=== PATIENT | female | born 2000 | race African-American/Black ===

== ENCOUNTER 2022-04-21 09:50 | Emergency (ER) | payer OTHER ==
[~2022-04-21] VITALS: Ht 157.5 cm; Wt 81.0 kg
[2022-04-21 09:56] VITALS: BP 125/87
[2022-04-21 10:54] LABS: Basophils # (auto) 0 10 ^3/uL (0-0.2); Basophils % (auto) 0.3 % (0.0-2.0); Eosinophils # (auto) 0 10 ^3/uL (0-0.8); Hematocrit 43.3 % (36.0-46.0); Hemoglobin 14.3 g/dL (12.2-16.2); Lymphocytes # (auto) 1.7 10 ^3/uL (0.4-5.4); Lymphocytes % (auto) 11.7 % (10.0-50.0); Mean Corpuscular Hemoglobin 31.7 pg (28.0-32.0); Mean Corpuscular Volume 95.9 fL (80.0-100.0); Monocytes # (auto) 1.1 10 ^3/uL (0-1.3); Monocytes % (auto) 7.7 % (0.0-12.0); Neutrophils # (auto) 11.8 10 ^3/uL (1.6-8.6); Neutrophils % (auto) 80.3 % (37.0-80.0); Red Blood Cells 4.52 10^6/uL (4.0-5.20); White Blood Cell 14.8 10^3/uL (4.4-10.8)
[2022-04-21 11:14] LABS: BUN/Creatinine Ratio 9.3; Calcium 9.5 mg/dL (8.5-10.1); Potassium 4.3 mmol/L (3.5-5.1)
[2022-04-21 12:16] LABS: Alcohol, Urine < 3.0 mg/dL (0-10); Amphetamine Screen, Urine NEGATIVE (NEGATIVE); Barbiturate Scree,Urine NEGATIVE (NEGATIVE); Benzodiazephine Screen, Urine NEGATIVE (NEGATIVE); Cannabinoid Screen, Urine NEGATIVE (NEGATIVE); Opiate Scree,Urine NEGATIVE (NEGATIVE)
[2022-04-21 12:24] LABS: Cocaine Screen, Urine POSITIVE (NEGATIVE); Phencyclidine Screen, Urine NEGATIVE (NEGATIVE)
[2022-04-21] MEDS ORDERED: ALBU108A5 IN (12:50)
== END 2022-04-21 12:52 | disposition home or self-care (01) ==
LOC: ER 09:50
DX: F41.1 Generalized anxiety disorder (principal); F11.10 Opioid abuse, uncomplicated; R07.89 Other chest pain; F12.10 Cannabis abuse, uncomplicated; J45.909 Unspecified asthma, uncomplicated
CPT/HCPCS: 36415; 80048; 80307; 81025; 84484; 85025; 85379; 93005

== ENCOUNTER 2022-05-07 03:36 | Emergency (ER) | payer OTHER ==
[~2022-05-07] VITALS: Ht 157.5 cm; Wt 75.0 kg
[~2022-05-07 03:36] MED LIST: ALBU108A5 IN
[2022-05-07 04:29] VITALS: BP 148/85
[2022-05-07 07:57] LABS: Urine Blood Negative /uL (Negative); Urine Specific Gravity 1.008 (1.001-1.035)
[2022-05-07 08:55] LABS: Urine WBC 1 /hpf (0 - 5)
[2022-05-07 08:56] LABS: Urine Bacteria NONE SEEN /hpf (None Seen)
== END 2022-05-07 08:16 | disposition left against medical advice (07) ==
LOC: ER 03:36
DX: N89.8 Other specified noninflammatory disorders of vagina (principal); Z53.21 Procedure and treatment not carried out due to patient leaving prior to being seen by health care provider
CPT/HCPCS: 81001

== ENCOUNTER 2022-05-08 21:49 | Emergency (ER) | payer OTHER ==
[~2022-05-08] VITALS: Ht 157.5 cm; Wt 75.0 kg
[2022-05-08 22:54] LABS: Urine Blood Normal /uL (Negative); Urine Specific Gravity 1.006 (1.001-1.035)
[2022-05-09 03:13] VITALS: BP 115/71
[2022-05-09] MEDS ORDERED: MET075VC VG (05:47)
== END 2022-05-09 06:41 | disposition home or self-care (01) ==
LOC: ER 21:51
DX: N76.0 Acute vaginitis (principal); F41.9 Anxiety disorder, unspecified; J45.909 Unspecified asthma, uncomplicated; F12.90 Cannabis use, unspecified, uncomplicated; F15.90 Other stimulant use, unspecified, uncomplicated
CPT/HCPCS: 81003; 81025